=== PATIENT | female | born 1980 | race Two or more races ===

== ENCOUNTER 2020-04-14 21:39 | Inpatient (IN) | payer MEDICAID ==
[~2020-04-14] VITALS: Ht 175.3 cm; Wt 82.6 kg
--- NOTE | 2020-04-14 22:12 | NUR ---
BIBS FROM HOME TO ER BED 6. AAOX4. NOT IN RESP DISTRESS, BREATHING EVEN AND UNLABORED. AMBULATORY. CAME IN FOR FEVER, SOB, AND BODY ACHE. PT REPORTS THAT SHE WAS TESTED FOR COVID WITH POSITIVE RESULT ON SATURDAY. PT REPORTS TAKING ADVIL COLD AND FLU, LAST TAKEN 3 HOURS AGO. PT'S TEMP IS NOTED @ 99.5. AT THE TIME OF ASSESSMENT PT IS SATTING AT 97% ON RA. MD WAS AT BEDSIDE FOR EVAL. ORDERS RECEIVED NOTED AND CARRIED OUT
[2020-04-14] MEDS ORDERED: ACETAMINOPHEN ES 500 MG TABLET ONE (22:19)
[2020-04-14] MEDS ORDERED: ACETAMINOPHEN 325 MG TABLET PO ONE (22:30)
[2020-04-14] MEDS ORDERED: AZITHROMYCIN 500 MG in IV D5W 250 ML IV ONE (23:00)
[2020-04-14] MEDS ORDERED: CEFTRIAXONE 1GM BAG (ER ONLY) 1 GM/50 ML PIGGYBACK IV ONE (23:00)
[2020-04-14 23:11] LABS: BASOPHILS % (AUTO) 0.3 % (0.0-2.0); EOSINOPHILS % (AUTO) 0.1 % (0.0-6.0); HEMATOCRIT 47 % (33-45); HEMOGLOBIN 15.8 g/dL (11.5-14.8); LYMPHOCYTES # (AUTO) 1.1 /CMM (0.8-4.8); LYMPHOCYTES % (AUTO) 17.4 % (20.0-44.0); MEAN CORPUSCULAR HGB CONC 33 g/dl (31.0-36.0); MEAN CORPUSCULAR VOLUME 87 fL (82-100); MONOCYTES # (AUTO) 0.7 /CMM (0.1-1.30); MONOCYTES % (AUTO) 10.4 % (2.0-12.0); NEUTROPHILS # (AUTO) 4.5 /CMM (1.8-8.9); NEUTROPHILS % (AUTO) 71.8 % (43.0-81.0); PLATELET COUNT (AUTO) 189 /CMM (150-450); RED BLOOD CELL COUNT(AUTO) 5.47 MIL/uL (4.0-5.2); WHITE BLOOD COUNT (AUTO) 6.3 K/uL (4.3-11.0)
[2020-04-14] MEDS ORDERED: CEFTRIAXONE 1GM BAG (ER ONLY) 50 ML IV ONE (23:27)
[2020-04-14] MEDS ORDERED: AZITHROMYCIN 500 MG VIAL ONE (23:27)
[2020-04-14 23:39] LABS: CALCIUM, SERUM 9.3 mg/dL (8.5-10.1); CARBON DIOXIDE 27 mmol/L (21-32); CHLORIDE 100 mmol/L (98-107); CREATININE 0.8 mg/dL (0.6-1.3); GLUCOSE 122 mg/dL (74-106); SODIUM SERUM 136 mmol/L (136-145); UREA NITROGEN, BLOOD 9 mg/dL (7-18)
--- NOTE | 2020-04-14 23:39 | NUR ---
BED ASSIGNMENT 107
[2020-04-14 23:49] LABS: ALANINE AMINOTRANSFERASE 50 U/L (12-78); ALBUMIN 3.5 g/dL (3.4-5.0); ALKALINE PHOSPHATASE 104 U/L (46-116); ASPARTATE AMINOTRANSFERASE 36 U/L (15-37); BILIRUBIN,DIRECT 0.1 mg/dL (0.0-0.2); BILIRUBIN,TOTAL 0.4 mg/dL (0.2-1.0); TOTAL PROTEIN, SERUM 8.6 g/dL (6.4-8.2)
--- NOTE | 2020-04-14 23:51 | NUR ---
REPORT GIVEN TP NEIL MAGAÑA FOR KEHINDE
--- NOTE | 2020-04-15 00:07 | NUR ---
PT TRANSPORTED TO UNIT ON [facility] WITH EMT AND RN AT BEDSIDE W/ ACLS PROTOCOL. NAD NOTED DURING TRANSPORT. PT AMBULATED FROM GURNEY TO BED ON STEADY GAIT.
--- NOTE | 2020-04-15 00:10 | NUR ---
0010 ADMITTED FROM ER 40 YEAR OLD FEMALE VIA BED, AAOX4. ABLE TO AMBULATE TO BED, WITH C/O SOB WHEN AMBULATING. O2 SATURATION 96% ON ROOM AIR. PLACED ON SUPPLY CHAIN PLANNER . REFUSED TO WEAR HOSPITAL GOWN. VITAL SIGNS CHECKED AND RECORDED. ADMISSION CARE RENDERED. NO SKIN BREAKDOWN NOTED. PLACED PATIENT ON O2 2L PER NC DUE TO C/O SOB ON EXERTION. PLACED ON DROPLET ISOLATION WITH PRECAUTIONS STRICTLY FOLLOWED. KEPT SURGICAL MASK ON PATIENT. CALL LIGHT PLACED WITHIN REACH AND INSTRUCTED PATIENT TO CALL FOR ASSISTANCE THRU MULCHER OPERATOR.
[2020-04-15 00:15] VITALS: BP 146/92
--- NOTE | 2020-04-15 00:25 | NUR ---
0025 DR TOWNSEND MADE AWARE OF ADMISSION AND NEED FOR ORDERS.
[2020-04-15] MEDS ORDERED: MAGNESIUM HYDROXIDE 30 ML UDC PO PRN (00:30)
[2020-04-15] MEDS ORDERED: Z GUARD REMEDY 2 OZ OINT TP PRN (00:30)
[2020-04-15] MEDS ORDERED: MAG HYDROX/AL HYDROX/SIMETH 30 ML UDC PO PRN (00:30)
[2020-04-15] MEDS ORDERED: ONDANSETRON HCL/PF 4 MG/2 ML VIAL IVP PRN (00:30)
[2020-04-15 01:55] LABS: C-REACTIVE PROTEIN 10.9 mg/dL (0.0-0.9)
[2020-04-15 04:00] VITALS: BP 143/95
[2020-04-15] MEDS: ACETAMINOPHEN 325 MG TABLET PO PRN ×2 (04:22→20:09)
--- NOTE | 2020-04-15 06:34 | NUR ---
RN CLOSING NOTE: PATIENT REMAINS IN ROOM. NO SIGNS OF RESPIRATORY. SAFETY PRECAUTIONS IN PLACE WITH BED IN LOWEST POSITION, CALL LIGHT WITHIN REACH, BREAKS ON, SIDE RAILS UP. ALL NEEDS ATTENDED TO, PATIENT KEPT CLEAN AND DRY. WILL ENDORSE TO ONCOMING SHIFT ABOUT KEHINDE.
[2020-04-15 08:00] VITALS: BP 145/95
--- NOTE | 2020-04-15 08:00 | NUR ---
YAMILET RN OPENING NOTES RECEIVED PT IN BED COMFORTABLE.ALERT AND ORIENTED X4.GT PT IS ON N/C 2 L. TUBE FEEDING.LEFT AC IS WELL FLUSHED AND INTACT. BED IN LOWEST POSITION. CALL LIGHT WITHIN REACH. SAFETY MEASUREMENTS ARE IMPLEMENTED. RAILS UP X2. WILL CONTINUE TO MONITOR. Addendum: 04/15/20 at 1843 by GIOVANNI CEDILLO RN CORRECTION PATIENT IS ON REGULAR DIET.
[2020-04-15] MEDS ORDERED: IBUP1TAB PO (08:33)
[2020-04-15] MEDS: ENOXAPARIN SODIUM 40 MG/0.4 ML DISP.SYRIN SQ SCH (10:18)
[2020-04-15] MEDS: HYDROCODONE/APAP 5/325MG 1 EACH TABLET PO PRN ×2 (10:36→14:56)
[2020-04-15 12:00] VITALS: BP 123/96
[2020-04-15 16:00] VITALS: BP 147/93
--- NOTE | 2020-04-15 18:11 | NUR ---
YAMILET RN CLOSING NOTES RECEIVED PT IN BED COMFORTABLE.ALERT AND ORIENTED X4.GT PT IS ON N/C 2 L. PAIN WAS THROUGHOUT THE DAY 06/13 GAVE HER TWICE NORCO. LEFT AC IS WELL FLUSHED AND INTACT. BED IN LOWEST POSITION. CALL LIGHT WITHIN REACH. SAFETY MEASUREMENTS ARE IMPLEMENTED. RAILS UP X2. WILL ENDORSED TO KEHINDE
[2020-04-15 20:00] VITALS: BP 149/96
[2020-04-15] MEDS: CEFTRIAXONE 1 G in IV D5W 50 ML IV SCH (20:04)
[2020-04-15] MEDS: AZITHROMYCIN 500 MG in IV D5W 250 ML IV SCH (20:42)
[2020-04-16] VITALS: BP 148/101
--- NOTE | 2020-04-16 01:04 | NUR ---
RN NOTE: SPOKE WITH STEPHAN FROM LAB TO CONFIRM IF THEY RECEIVED SPECIMEN FOR COVID. PER LAB, THEY RECEIVED IT ON 04/15/20 AT 0430. PENDING COVID RESULT.
[2020-04-16 04:00] VITALS: BP 150/99
--- NOTE | 2020-04-16 04:38 | NUR ---
RN NOTE: LAB CALLED AND RECEIVED COVID RESULT: NEGATIVE
--- NOTE | 2020-04-16 07:13 | NUR ---
RN CLOSING NOTE: PATIENT IN BED, AWAKE, AND ABLE TO MAKE NEEDS KNOWN. NO SOB. NO C/O PAIN. IN STABLE CONDITION. ENDORSED TO AM NURSE FOR CONTINUITY OF CARE.
[2020-04-16 07:49] LABS: BASOPHILS % (AUTO) 0.2 % (0.0-2.0); EOSINOPHILS % (AUTO) 0.3 % (0.0-6.0); HEMATOCRIT 45 % (33-45); LYMPHOCYTES # (AUTO) 1.1 /CMM (0.8-4.8); LYMPHOCYTES % (AUTO) 18.9 % (20.0-44.0); MEAN CORPUSCULAR HGB CONC 33 g/dl (31.0-36.0); MEAN CORPUSCULAR VOLUME 86 fL (82-100); MONOCYTES # (AUTO) 0.8 /CMM (0.1-1.30); MONOCYTES % (AUTO) 12.8 % (2.0-12.0); NEUTROPHILS # (AUTO) 4.1 /CMM (1.8-8.9); NEUTROPHILS % (AUTO) 67.8 % (43.0-81.0); PLATELET COUNT (AUTO) 227 /CMM (150-450); RED BLOOD CELL COUNT(AUTO) 5.27 MIL/uL (4.0-5.2)
[2020-04-16 08:00] VITALS: BP 136/94
[2020-04-16 08:12] LABS: BILIRUBIN,TOTAL 0.4 mg/dL (0.2-1.0); CALCIUM, SERUM 8.7 mg/dL (8.5-10.1); CREATININE 0.8 mg/dL (0.6-1.3); PHOSPHORUS 3.1 mg/dL (2.5-4.9); POTASSIUM 3.4 mmol/L (3.5-5.1)
[2020-04-16] MEDS: ENOXAPARIN SODIUM 40 MG/0.4 ML DISP.SYRIN SQ SCH (08:50)
--- NOTE | 2020-04-16 08:55 | NUR ---
RECEIVED AWAKE ALERT NO ACUTE DISTRESS.NEGATIVE COVID AWARE.
--- NOTE | 2020-04-16 10:23 | NUR ---
DR. BLILINGSLEY AWARE PT. NEGATIVE NO ACUTE DISTRESS,PER NURSING SUP AWAITS CLEAN BED,WILL CONTINUE TO FOLLOW UP.
--- NOTE | 2020-04-16 11:30 | NUR ---
PT TRANSFER PT RECEIVED AFTER REPORT RECEIVED. PT TRANSFERRED VIA WHEELCHAIR. ALL MEDICATIONS AND PERSONAL BELONGINGS TRANSFERRED WITH PATIENT TO RECEIVING FLOOR.
[2020-04-16] MEDS: ACETAMINOPHEN 325 MG TABLET PO PRN ×2 (13:54→20:58)
[2020-04-16] MEDS: POTASSIUM CL. PREMIX PERIPHER. 50 ML IV SCH ×2 (15:27→17:10)
[2020-04-16 16:00] VITALS: BP 137/87
--- NOTE | 2020-04-16 18:37 | NUR ---
CHANGE OF SHIFT REPORT PT RESTING COMFORTABLY IN BED. NO S/S OR C/O PAIN OR DISTRESS NOTED. SIDE RAILS UP X2, CALL LIGHT LEFT WITHIN REACH. PT KEPT CLEAN, DRY, AND COMFORTABLE. NO SIGNIFICANT CHANGES SINCE PREVIOUS SHIFT. WILL GIVE REPORT TO LORENA TREJO.
[2020-04-16 20:00] VITALS: BP 133/82
[2020-04-16] MEDS: CEFTRIAXONE 1 G in IV D5W 50 ML IV SCH (20:00)
[2020-04-16] MEDS: AZITHROMYCIN 500 MG in IV D5W 250 ML IV SCH (20:57)
--- NOTE | 2020-04-16 20:58 | NUR ---
prn tylenol: pt c/o head ache, 01/11 requesting for tylenol. prn tylenol 650 mg tab po administered to pt at this time. all communications translated using food beverage attendant.
[2020-04-17 06:30] LABS: CALCIUM, SERUM 9.1 mg/dL (8.5-10.1); CREATININE 0.7 mg/dL (0.6-1.3); POTASSIUM 3.9 mmol/L (3.5-5.1)
--- NOTE | 2020-04-17 06:57 | NUR ---
end of shift report: pt remains cooperative, calm, afebrile throughout the shift. remains on 2l oxygen via nc respirations even and unlabored. spo2 95-96%. iv access remains patent and flushing well, on hl, no s/s of iv infiltration noted. k 3.4, replaced yesterday. all due meds administered. prn tylenol administered for c/o head ache. vs remains stable, needs attended. safety precautions for fall remains engaged, call light in reach, will endorse to day rn for continuity of care.
--- NOTE | 2020-04-17 08:00 | NUR ---
RN NOTES RECEIVED PATIENT IN THE BED A/O X3 ICELANDIC SPEAKER, PATIENT HAS NO ACUTE RESPIRATORY DISTRESS, ROOM AIR. PATIENT AMBULATORY SELF CARE. ADMINISTERED SCHEDULED MEDICATION, V/S STABLE, REFUSED PAIN AT THIS TIME. IV ACCESS ON LEFT AC INTACT. CALL LIGHT WITHIN TO REACH. CONTINUED MONITORING.
[2020-04-17 08:18] VITALS: BP 117/75
[2020-04-17] MEDS: ENOXAPARIN SODIUM 40 MG/0.4 ML DISP.SYRIN SQ SCH (09:12)
[2020-04-17] MEDS ORDERED: AZITHROMYCIN 250 MG TABLET PO SCH ×2 (10:30→21:00)
[2020-04-17] MEDS ORDERED: LEVO750T21 PO (12:39)
--- NOTE | 2020-04-17 13:50 | NUR ---
rn notes seen hospitalist Dr Shirin schuster will discharge home self care, take prescribed medication, as prescribed.
--- NOTE | 2020-04-17 15:30 | NUR ---
CUSTOMER [employer]UTIONS ARCHITECT NOTES PATIENT DISCHARGE AT THIS TIME GOING HOME SELF CARE. PATIENT YI SPEAKER, STABLE, REFUSED PAIN, AMBULATORY. MED RECONCILIATION AND DISCHARGE ORDERS REVIEWED AND EXPLAINED TO PATIENT. PATIENT VERBALIZED UNDERSTANDING PER ACCOUNT MAINTENANCE REPRESENTATIVE. PATIENT SIGN PAPERWORK, MEDICATION WILL COMPRESSOR SERVICE TECHNICIAN FROM [facility] ELECT[facility]IC SANDED VIA HOSPITALIST. ESCORTED PATIENT TO THE LOBBY FOR SAFETY, PATIENT WILL FOLLOW PRIMARY MD. PATIENT COMPRESSOR SERVICE TECHNICIAN BY BROTHER NAME OUMAR PHONE # [phone].
== END 2020-04-17 15:30 | disposition home or self-care (01) | DRG 139 ==
LOC: ER 21:39 → TELE1 23:53 → MEDSG1 04-16 10:25 → MEDSG2 04-16 11:30
PROVIDERS: ADMIT Internal Medicine
DX: J15.9 Unspecified bacterial pneumonia (principal); J96.01 Acute respiratory failure with hypoxia; E66.9 Obesity, unspecified; Z68.26 Body mass index [BMI] 26.0-26.9, adult
CPT/HCPCS: 36415; 71045-TC; 80048-TC; 80053-TC; 80076-TC; 82550-TC; 82728-TC; 83605-TC; 83615-TC; 83735-TC; 84100-TC; 84484-TC; 84703-TC; 85025-TC; 85378-TC; 86140-TC; 87040-TC; 87081-TC; 87086-TC; G0378; J0456; J0696; J1650; J3480; J7040; J7060; U0003-CS